=== PATIENT | male | born 1965 | race Caucasian/White ===

== ENCOUNTER → 2022-07-05 | Day surgery (SDC) | payer OTHER ==
[~2022-07-05] VITALS: Ht 177.8 cm; Wt 90.7 kg
[~2022-07-05] MED LIST: AMLO-489 PO; ATOR10TA52 PO; BENZ100C97 PO; BUPIVACAINE 0.25% INJ 50ML VIAL ONE; CETI10TA2 PO; CHOL500014 PO; GARL200T PO; HYDROmorphone HCL 2 MG/ML VL/or syr IV PRN; LEVO88TA4 PO; LIDOCAINE 2% (LOCAL ANESTH.) PF 5ml SDV ONE; METO25TA93 PO; MIDAZOLAM HCL 2MG/2ML 2ml VIAL (1mg/ml) ONE; ONDANSETRON HCL 4 MG/2 ML VIAL IV PRN; ONDANSETRON HCL 4 MG/2 ML VIAL ONE; PROPOFOL 10 MG/ML 20 ML IV ONE; RIVA20TA PO; ceFAZolin 1GM/50ML 100 ML IV ONE; fentaNYL CITRATE 100 MCG/2 ML VL ONE
[2022-07-05 09:00] VITALS: BP 142/77
== END | disposition home or self-care (01) ==
LOC: SUR 06:04
PROVIDERS: ATTEND Orthopaedic Surgery Sports Medicine
DX: G56.02 Carpal tunnel syndrome, left upper limb (principal); I10 Essential (primary) hypertension; I48.91 Unspecified atrial fibrillation; E03.9 Hypothyroidism, unspecified; Z88.7 Allergy status to serum and vaccine; Z98.890 Other specified postprocedural states; Z79.899 Other long term (current) drug therapy; Z79.890 Hormone replacement therapy; Z20.822 Contact with and (suspected) exposure to COVID-19
CPT/HCPCS: 64721; J0690; J2001; J2250; J2405; J2704; J3010; J3490; U0003